=== PATIENT | male | born 1955 | race Caucasian/White ===

== ENCOUNTER 2025-05-21 13:51 | Inpatient (IN) | payer OTHER ==
[2025-05-21 15:41] LABS: MCHC 32.7 g/dl (32.3-36.5); MEAN CELL VOLUME 94.6 fl (79.0-92.2); MEAN PLT VOLUME 9.3 fl (9.4-12.4); RDW 14.3 % (12.2-16.4)
[2025-05-21 16:16] LABS: ERYTHROCYTE SEDIMENTATION RATE 77 mm/hr (0-20)
[2025-05-21 16:19] LABS: GLUCOSE,RANDOM 196.0 mg/dL (74-106)
[2025-05-21 16:20] LABS: TOT PROT 6.0 g/dl (6.4-8.2)
[2025-05-21 16:21] LABS: CO2 27.0 mmol/L (21-32)
[2025-05-21 16:22] LABS: ALK PHOS 70.0 U/L (40-150)
[2025-05-21 16:25] LABS: CREATININE 0.75 mg/dL (0.55-1.3); SGOT/AST 18.0 U/L (5-34); SGPT/ALT 15.0 U/L (0-55)
[2025-05-21] MEDS ORDERED: ACETAMINOPHEN INJECTION 100 ML ONE (16:26)
[2025-05-21] MEDS: ACETAMINOPHEN 1000 MG/100 ML BAG IVPB ONE (16:34)
[2025-05-21 16:44] LABS: HCV DIAGNOSTIC IN-HOUSE W/RFLX NON-REACTIVE (NONREACTIVE); HIV INTERPRETATION NEGATIVE (NEGATIVE)
[2025-05-21] MEDS ORDERED: PIPERACILLIN/TAZOB 3.375 GM 3.375 GM/50 ML BAG IVPB ONE (19:02)
[2025-05-21] MEDS: PIPERACILLIN/TAZOB 4.5 GM 4.5 GM in DEXTROSE 5%-WATER 100 ML IVPB ONE (19:40)
[2025-05-21] MEDS ORDERED: PIPERACILLIN/TAZOB 4.5 GM 4.5 GM/100 ML BAG IVPB ONE (19:46)
[2025-05-21] MEDS ORDERED: VANCOMYCIN/WATER 1250 MG 1,250 MG/250 ML BAG IVPB ONE (20:17)
[2025-05-21] MEDS: VANCOMYCIN/WATER 1250 MG 1,250 MG/250 ML BAG IVPB ONE (20:19)
[2025-05-22] MEDS ORDERED: PIPERACILLIN/TAZOB 3.375 GM 3.375 GM/50 ML BAG IVPB ONE (02:19)
[2025-05-22] MEDS: PIPERACILLIN/TAZOB 4.5 GM 3.375 GM in DEXTROSE 5%-WATER 100 ML IVPB ONE (02:20)
[2025-05-22] MEDS ORDERED: PIPERACILLIN/TAZOB 3.375 GM 3.375 GM in DEXTROSE 5%-WATER - 50 ML IVPB SCH (09:00)
[2025-05-22 09:09] LABS: MCHC 33.1 g/dl (32.3-36.5); MEAN CELL VOLUME 93.1 fl (79.0-92.2); MEAN PLT VOLUME 9.3 fl (9.4-12.4); RDW 14.3 % (12.2-16.4)
[2025-05-22 09:23] LABS: GLUCOSE,RANDOM 154.0 mg/dL (74-106)
[2025-05-22 09:24] LABS: TOT PROT 5.8 g/dl (6.4-8.2)
[2025-05-22 09:25] LABS: CO2 26.0 mmol/L (21-32)
[2025-05-22 09:27] LABS: ALK PHOS 73.0 U/L (40-150)
[2025-05-22 09:29] LABS: CREATININE 0.84 mg/dL (0.55-1.3); SGOT/AST 16.0 U/L (5-34); SGPT/ALT 18.0 U/L (0-55)
[2025-05-22 09:41] VITALS: RESP 18
[2025-05-22] MEDS: COLCHICINE 0.6 MG TAB PO ONE ×2 (09:45→12:39)
[2025-05-22] MEDS: PIPERACILLIN/TAZOB 3.375 GM 3.375 GM in DEXTROSE 5%-WATER - 50 ML IVPB SCH (09:46)
[2025-05-22] MEDS: SPIRONOLACTONE 25 MG TABLET PO SCH (12:39)
[2025-05-22] MEDS: DIVALPROEX NA *ER* EXTEND REL 250 MG TABLET.SA PO SCH (12:39)
[2025-05-22] MEDS: SACUBITRIL/VALSARTAN 24 MG-26 MG TABLET PO SCH (12:39)
[2025-05-22 12:53] VITALS: BMI 22.4
[2025-05-22] MEDS: VANCOMYCIN/WATER 1250 MG 1,250 MG/250 ML BAG IVPB ONE (21:29)
[2025-05-23] MEDS: VANCOMYCIN/WATER FOR INJ (PEG) 1,000 MG/200 ML BAG IVPB SCH (07:47)
[2025-05-23 08:31] LABS: ABSOLUTE IMMATURE GRANULOCYTES 0.04 x10^3/uL (0.0-0.031); BASOPHILS # 0.02 x10^3/uL (0.01-0.08); EOSINOPHIL % 0.6 % (0.8-7.0); EOSINOPHILS # 0.05 x10^3/uL (0.04-0.54); MCHC 31.7 g/dl (32.3-36.5); MEAN CELL VOLUME 95.3 fl (79.0-92.2); MEAN PLT VOLUME 9.2 fl (9.4-12.4); MONOCYTE # 0.85 x10^3/uL (0.30-0.82); MONOCYTE % 10.9 % (5.3-12.2); RDW 14.4 % (12.2-16.4)
[2025-05-23 08:52] LABS: GLUCOSE,RANDOM 105.0 mg/dL (74-106); TOT PROT 5.5 g/dl (6.4-8.2)
[2025-05-23 08:53] LABS: CO2 26.0 mmol/L (21-32)
[2025-05-23 08:55] LABS: ALK PHOS 61.0 U/L (40-150)
[2025-05-23 08:58] LABS: CREATININE 0.79 mg/dL (0.55-1.3); SGOT/AST 13.0 U/L (5-34); SGPT/ALT 12.0 U/L (0-55)
[2025-05-23] MEDS: CEFTRIAXONE 1 GM in DEXTROSE 5%-WATER - 50 ML IVPB SCH (09:53)
[2025-05-23] MEDS: SACUBITRIL/VALSARTAN 24 MG-26 MG TABLET PO SCH (09:53)
[2025-05-23] MEDS: FUROSEMIDE 40 MG TABLET (FP) PO SCH (09:54)
[2025-05-23] MEDS: SPIRONOLACTONE 25 MG TABLET PO SCH (09:54)
[2025-05-23] MEDS: DIVALPROEX NA *ER* EXTEND REL 250 MG TABLET.SA PO SCH (09:54)
[2025-05-23] MEDS: COLCHICINE 0.6 MG TAB PO SCH (09:54)
[2025-05-23] MEDS ORDERED: FUROSEMIDE 40 MG TABLET (FP) PO SCH (10:00)
[2025-05-23] MEDS ORDERED: COLCHICINE 0.6 MG TAB PO SCH (10:00)
[2025-05-23] MEDS: DIVALPROEX SODIUM 250 MG TABLET E.C. PO SCH (21:18)
[2025-05-23] MEDS ORDERED: DIVALPROEX NA *ER* EXTEND REL 250 MG TABLET.SA PO SCH (22:00)
[2025-05-24 07:30] LABS: ABSOLUTE IMMATURE GRANULOCYTES 0.04 x10^3/uL (0.0-0.031); BASOPHILS # 0.02 x10^3/uL (0.01-0.08); EOSINOPHIL % 1.2 % (0.8-7.0); EOSINOPHILS # 0.09 x10^3/uL (0.04-0.54); MCHC 32.1 g/dl (32.3-36.5); MEAN CELL VOLUME 94.1 fl (79.0-92.2); MEAN PLT VOLUME 9.1 fl (9.4-12.4); MONOCYTE # 0.67 x10^3/uL (0.30-0.82); MONOCYTE % 9.0 % (5.3-12.2); RDW 14.2 % (12.2-16.4)
[2025-05-24 07:47] LABS: GLUCOSE,RANDOM 127.0 mg/dL (74-106)
[2025-05-24 07:48] LABS: TOT PROT 5.7 g/dl (6.4-8.2)
[2025-05-24 07:49] LABS: CO2 25.0 mmol/L (21-32)
[2025-05-24 07:50] LABS: ALK PHOS 65.0 U/L (40-150)
[2025-05-24 07:53] LABS: CREATININE 0.72 mg/dL (0.55-1.3); SGOT/AST 14.0 U/L (5-34); SGPT/ALT 13.0 U/L (0-55)
[2025-05-24] MEDS: VANCOMYCIN/WATER 1250 MG 1,250 MG/250 ML BAG IVPB SCH (09:20)
[2025-05-25 07:14] LABS: ABSOLUTE IMMATURE GRANULOCYTES 0.05 x10^3/uL (0.0-0.031); BASOPHILS # 0.02 x10^3/uL (0.01-0.08); EOSINOPHIL % 1.7 % (0.8-7.0); EOSINOPHILS # 0.11 x10^3/uL (0.04-0.54); MCHC 32.0 g/dl (32.3-36.5); MEAN CELL VOLUME 92.5 fl (79.0-92.2); MEAN PLT VOLUME 8.9 fl (9.4-12.4); MONOCYTE # 0.58 x10^3/uL (0.30-0.82); MONOCYTE % 9.2 % (5.3-12.2); RDW 14.0 % (12.2-16.4)
[2025-05-25 07:30] LABS: GLUCOSE,RANDOM 106.0 mg/dL (74-106)
[2025-05-25 07:31] LABS: TOT PROT 5.7 g/dl (6.4-8.2)
[2025-05-25 07:32] LABS: CO2 25.0 mmol/L (21-32)
[2025-05-25 07:33] LABS: ALK PHOS 69.0 U/L (40-150)
[2025-05-25 07:36] LABS: SGOT/AST 13.0 U/L (5-34); SGPT/ALT 12.0 U/L (0-55)
[2025-05-25 07:37] LABS: CREATININE 0.64 mg/dL (0.55-1.3)
[2025-05-25] MEDS: ENOXAPARIN NA (PORCINE) 40 MG/0.4 ML DISP.SYRIN SQ ONE (10:24)
[2025-05-26 07:43] LABS: ABSOLUTE IMMATURE GRANULOCYTES 0.07 x10^3/uL (0.0-0.031); BASOPHILS # 0.02 x10^3/uL (0.01-0.08); EOSINOPHIL % 2.7 % (0.8-7.0); EOSINOPHILS # 0.12 x10^3/uL (0.04-0.54); MCHC 32.3 g/dl (32.3-36.5); MEAN CELL VOLUME 92.1 fl (79.0-92.2); MEAN PLT VOLUME 9.0 fl (9.4-12.4); MONOCYTE # 0.41 x10^3/uL (0.30-0.82); MONOCYTE % 9.2 % (5.3-12.2); RDW 14.1 % (12.2-16.4)
[2025-05-26 08:07] LABS: GLUCOSE,RANDOM 99.0 mg/dL (74-106); TOT PROT 5.1 g/dl (6.4-8.2)
[2025-05-26 08:08] LABS: CO2 26.0 mmol/L (21-32)
[2025-05-26 08:10] LABS: ALK PHOS 59.0 U/L (40-150)
[2025-05-26 08:12] LABS: SGOT/AST 13.0 U/L (5-34); SGPT/ALT 12.0 U/L (0-55)
[2025-05-26 08:13] LABS: CREATININE 0.61 mg/dL (0.55-1.3)
[2025-05-26 11:13] VITALS: BP 150/79; PULSE 60; TEMP 97.5
== END 2025-05-26 11:22 | disposition short-term general hospital (02) | DRG 603 ==
LOC: JER 13:51 → JERBED 18:03 → J5S 05-22 06:07 → J6S 05-22 20:31
PROVIDERS: ADMIT Student in an Organized Health Care Education/Training Program; ATTEND Internal Medicine
DX: L02.512 Cutaneous abscess of left hand (principal); L03.114 Cellulitis of left upper limb; I11.0 Hypertensive heart disease with heart failure; I50.9 Heart failure, unspecified; E03.9 Hypothyroidism, unspecified; F20.9 Schizophrenia, unspecified; F31.9 Bipolar disorder, unspecified; D50.9 Iron deficiency anemia, unspecified; N40.0 Benign prostatic hyperplasia without lower urinary tract symptoms; M19.042 Primary osteoarthritis, left hand
CPT/HCPCS: 36415; 73130-TC-LT-FY; 73201-TC-RT; 80053; 82962; 83735; 84100; 84550; 85025; 85651; 86038; 86140; 86803; 87040; 87389; 93005; 93010; 99285-25; G0480; Q9967